=== PATIENT | male | born 1995 | race Caucasian/White ===

== ENCOUNTER 2017-02-15 17:13 | Emergency (ER) | payer OTHER ==
[2017-02-15 17:17] VITALS: BP 121/70; PULSE 66; TEMP 97.9; BMI 29.8
[2017-02-15] MEDS ORDERED: ACETAMINOPHEN 325 MG TABLET (FP) PO ONE (17:28)
[2017-02-15] MEDS ORDERED: ACETAMINOPHEN 325 MG TABLET (FP) ONE (17:31)
--- NOTE | 2017-02-15 17:54 | PDOC ---
History of Present Illness - General History Source: Patient Exam Limitations: No Limitations - History of Present Illness Initial Comments: 02/15/17 18:19 The patient is a 22 year old male, with no significant past medical history, who presents to the emergency department with right wrist pain for approximately 3 days. The patient reports he went snowboarding on Wednesday, but did not remember experiencing any notable trauma/injury to the right hand or wrist. After snowboarding patient reports going home and beginning to develop right wrist pain and swelling. Patient reports the pain has been worsening and is exacerbated with movement or palpation of the wrist. He reports numbness and tingling in his right hand/wrist, which he relates to the placido wrap he had in place for his wrist pain. Patient reports taking Advil at 14:00 today with mild relief of symptoms. He denies any other pain, weakness, or erythema. No other injuries, no loc, neck pain, back pain or other extremity pain. Allergies: Amoxicillin Past Surgical History: None reported Social History: Non smoker. No ETOH use. <Clemencia García - Last Filed: 02/15/17 18:18> <Dre Castillo - Last Filed: 02/15/17 18:31> - General Chief Complaint: Pain, Acute Stated Complaint: left wrist pain Time Seen by Provider: 02/15/17 17:16 Past History <Clemencia García - Last Filed: 02/15/17 18:18> - Past Medical History Anemia: No Asthma: No Cancer: No Cardiac Disorders: No CVA: No COPD: No CHF: No DVT: No Dementia: No Diabetes: No GI Disorders: No Disorders: No HTN: No Hypercholesterolemia: No Liver Disease: No Seizures: No Thyroid Disease: No - Surgical History Abdominal Surgery: No Appendectomy: No Cardiac Surgery: No Cholecystectomy: No Lung Surgery: No Neurologic Surgery: No Orthopedic Surgery: Yes (RECONSTRUCTION OF RIGHT FOOT-2013) - Immunization History Immunization Up to Date: Yes - Suicide/Smoking/Psychosocial Hx Smoking History: Former smoker Have you smoked in the past 12 months: Yes Number of Cigarettes Smoked Daily: 10 If you are a former smoker, when did you quit?: 08/09/2015 Information on smoking cessation initiated: No 'Breaking Loose' booklet given: 07/12/15 Hx Alcohol Use: No Drug/Substance Use Hx: No Substance Use Type: None Hx Substance Use Treatment: No <Dre Castillo - Last Filed: 02/15/17 18:31> - Past Medical History Allergies/Adverse Reactions: Allergies Allergy/AdvReac Type Severity Reaction Status Date / Time amoxicillin Allergy Intermediate Rash Verified 02/15/17 17:14 Home Medications: Ambulatory Orders NK [No Known Home Medication] 10/03/15 Review of Systems - Review of Systems Able to Perform ROS?: Yes Comments:: 02/15/17 18:19 CONSTITUTIONAL: No reported: Fever, Chills, Diaphoresis, Generalized Weakness, Malaise, Loss of Appetite MUSCULOSKELETAL: Present: Right wrist swelling, pain No reported: Myalgia, Back pain, Neck Pain SKIN: No reported: Rash, Itching, Pallor <García,Giomilsy - Last Filed: 02/15/17 18:18> *Physical Exam - Vital Signs Last Vital Signs Temp Pulse Resp BP Pulse Ox 97.9 F 66 15 121/70 100 02/15/17 17:13 02/15/17 17:13 02/15/17 17:13 02/15/17 17:13 02/15/17 17:13 - Physical Exam Comments: 02/15/17 18:19 GENERAL: The patient is awake, alert, and fully oriented, Nontoxic - in no acute distress. HEAD: Normocephalic, atraumatic. EXTREMITIES: Mild tenderness to the radial aspect of the L wrist, normal range of motion. Focal bony tenderness. No right hand or L snuffbox tenderness. mild pain with resisted pronation. Mild edema. SKIN: Warm, Dry, normal turgor <García,Giomilsy - Last Filed: 02/15/17 18:18> - Vital Signs Last Vital Signs Temp Pulse Resp BP Pulse Ox 97.9 F 66 15 121/70 100 02/15/17 17:13 02/15/17 17:13 02/15/17 17:13 02/15/17 17:13 02/15/17 17:13 <Dre Castillo - Last Filed: 02/15/17 18:31> Procedures - Splinting Splint Location: Left: Wrist (thumb spica) Pre-Proc Neuro Vasc Exam: normal Hand-Made Type: orthoglass Splint Type: Yes: Thumb Spica Post-Proc Neuro Vasc Exam: normal Placido Bandage: 3", 4" Sling: Yes <Dre Castillo - Last Filed: 02/15/17 18:31> ED Treatment Course - RADIOLOGY Radiology Studies Ordered: 02/15/17 18:13 EXAM: Left Wrist XR INTERPRETED BY: REVIEWED BY: Dr. Castillo IMPRESSION: Equivocal nondisplaced navicular fracture as discussed above. MRI evaluation is suggested, nonemergent unless otherwise clinically indicated. - Medications Given in the ED: ED Medications Discontinued Medications Generic Name Dose Route Start Last Admin Trade Name Freq PRN Reason Stop Dose Admin Acetaminophen 650 mg 02/15/17 17:28 02/15/17 17:33 Tylenol - PO 02/15/17 17:29 650 mg ONCE ONE Administration <Clemencia García - Last Filed: 02/15/17 18:18> Medical Decision Making - Medical Decision Making 02/15/17 18:15 First call placed to Dr. Mcpherson at 18:14. Awaiting call back. <Clemencia García - Last Filed: 02/15/17 18:18> - Medical Decision Making 02/15/17 17:29 22y M no pmhx presents with L wrist pain sp falling on wednesday while snowboarding - pt does not remember any acute injuries, but noted his wrist was sore wednesday evening. pt notes some tingling in his hand that may be secodary to the placido wrap he has on. no other pain elwehsere. took motrin with mild improvement. 02/15/17 17:54 xray suggestive of scaphoid fracture will place pt in a thumb spica splint and have him fu with orthopedics for further evaluation tomorrow. return precautions were discussed I discussed the physical exam findings, ancillary test results and final diagnoses with the patient. I answered all of the patient's questions. The patient was satisfied with the care received and felt comfortable with the discharge plan and treatment plan. The patient will call their primary care physician within 24 hours to arrange follow-up and will return to the Emergency Department with any new, persistent or worsening symptoms. <Dre Castillo - Last Filed: 02/15/17 18:31> *DC/Admit/Observation/Transfer - Attestations Scribe Attestion: 02/15/17 18:13 Documentation prepared by Clemencia García, acting as dental assistant medical assistant for Dre Castillo MD. <Clemencia García - Last Filed: 02/15/17 18:18> - Discharge Dispostion Admit: No <Dre Castillo - Last Filed: 02/15/17 18:31> Diagnosis at time of Disposition: Scaphoid fracture of wrist Qualifiers: Encounter type: initial encounter Scaphoid bone location: proximal third Fracture type: closed Fracture alignment: nondisplaced Laterality: left Qualified Code(s): S62.035A - Nondisplaced fracture of proximal third of navicular [scaphoid] bone of left wrist, initial encounter for closed fracture - Discharge Dispostion Disposition: HOME Condition at time of disposition: Stable - Referrals Referrals: Philippe Mcpherson MD [Staff Physician] - - Patient Instructions Printed Discharge Instructions: Wrist Fracture Additional Instructions: Please follow up with Dr. Mcpherson tomorrow for reevaluation (call office at 8am) Keep your arm elevated to minimize swelling. Keep the sling on and keep the splint dry (use a bag when you are showering). Take motrin or tylenol as needed for pain. Print Language: FINNISH - Post Discharge Activity Forms/Work/School Notes: Back to Work
== END 2017-02-15 18:34 | disposition home or self-care (01) ==
LOC: FER 17:13
PROC: 2W3CX1Z Immobilization of Right Lower Arm using Splint (ICD-10-PCS; principal; 2017-02-15)
DX: S62.035A Nondisplaced fracture of proximal third of navicular [scaphoid] bone of left wrist, initial encounter for closed fracture (principal); Y93.23 Activity, snow (alpine) (downhill) skiing, snowboarding, sledding, tobogganing and snow tubing; W18.39XA Other fall on same level, initial encounter; Y92.89 Other specified places as the place of occurrence of the external cause
CPT/HCPCS: 73110-TC-LT; 99283-25

== ENCOUNTER 2019-05-05 06:32 | Day surgery (SDC) | payer BC, OTHER ==
[2019-05-04 11:36] VITALS: BMI 30.7
[2019-05-05] MEDS ORDERED: DEXAMETHASONE SOD PHOSPHATE/PF 10 MG/ML SDV ONE (07:39)
[2019-05-05] MEDS ORDERED: MIDAZOLAM HCL 2 MG/2 ML SINGLE DOSE VIAL ONE ×2 (07:39→09:03)
[2019-05-05] MEDS ORDERED: ROPIVACAINE HCL 0.5% 30ML VIAL ONE (07:40)
[2019-05-05] MEDS ORDERED: KETOROLAC TROMETHAMINE 30 MG/1 ML VIAL ONE (09:06)
[2019-05-05] MEDS ORDERED: DEXAMETHASONE SOD PHOSPHATE 4 MG/1 ML VIAL ONE (09:06)
[2019-05-05] MEDS ORDERED: ONDANSETRON 4 MG/2 ML VIAL ONE (09:06)
[2019-05-05] MEDS ORDERED: PROPOFOL 20 ML ONE ×3 (09:07→09:46)
[2019-05-05] MEDS ORDERED: SUCCINYLCHOLINE CHLORIDE 200 MG/10 ML SYRINGE ONE (09:07)
[2019-05-05] MEDS ORDERED: LIDOCAINE HCL/PF 2% SDV 5ML VIAL ONE (09:08)
[2019-05-05] MEDS ORDERED: ONDANSETRON 4 MG/2 ML VIAL IVPUSH PRN (09:17)
[2019-05-05] MEDS ORDERED: oxyCODONE HCL 5 MG TABLET PO PRN ×2 (09:17)
[2019-05-05] MEDS ORDERED: LACTATED RINGERS SOLUTION 1,000 ML IV SCH (09:30)
[2019-05-05] MEDS ORDERED: SODIUM CHLORIDE 0.9% P/F 10 ML VIAL IJ ONE ×2 (09:53→09:56)
[2019-05-05] MEDS ORDERED: ceFAZolin SODIUM 1 GM VIAL ONE (09:56)
[2019-05-05] MEDS ORDERED: ceFAZolin SODIUM 1 GM VIAL IVPB ONE (09:56)
[2019-05-05] MEDS ORDERED: ACETAMINOPHEN 1000 MG/100 ML VIAL (NON FORMULARY) IVPB ONE (10:00)
[2019-05-05] MEDS ORDERED: DESFLURANE GAS 240 ML BOTTLE IH ONE (10:01)
[2019-05-05] MEDS ORDERED: BUPIVACAINE HCL/PF 0.25% (2.5MG/ML) 10 ML VIAL IJ ONE (10:45)
[2019-05-05] MEDS ORDERED: BUPIVACAINE HCL/PF 2.5 MG/ML - 30 ML VIAL IJ ONE (10:47)
[2019-05-05 13:15] VITALS: TEMP 97.9
[2019-05-05 13:19] VITALS: BP 136/87; PULSE 80
--- NOTE | 2019-05-05 22:07 | OP ---
DATE OF OPERATION: 05/05/2019 LOCATION: [facility] SURGEON: Guillermo Benz MD [employer] ARCHITECT: LAURITA Spring The PA listed above was present and assisted at surgery. Their presence was absolutely medically necessary for the completion of the procedure. They helped hold the arthroscopy, pass instruments (and implants when indicated) and the procedure could not have been completed without their assistance. PREOPERATIVE DIAGNOSIS: Left clavicle fracture. POSTOPERATIVE DIAGNOSIS: Left clavicle fracture. PROCEDURE: Open reduction and internal fixation of left clavicle fracture. FINDINGS: Short oblique fracture, mid shaft of the left clavicle. DESCRIPTION OF PROCEDURE: Informed consent was obtained. The patient was taken to the operating room, where the left upper extremity was prepped and draped in a sterile fashion up to the neck. C-arm fluoroscopy was used to confirm site. Incision was made starting 6 cm proximal to 6 mm distal around the fracture line. The trapezius fascia was incised, and the bone ends were identified. Wound was irrigated with copious amounts of irrigation. Curette was used to remove debris from the ends. Reduction clamps were placed, and the clavicle was reduced. A 6-hole left-sided clavicle plate was then spanned the fracture site. Using standard AO technique, distal and proximal locking screws were placed, providing 5 cortices distally and 4 cortices proximally around the fracture site. Wound was irrigated with copious amounts of irrigation again. The fascial layer was closed with 0 Vicryl in running fashion and then a layered closure of 2-0 Vicryl and 3-0 nylon. Sterile dressing was placed. The patient was transferred to the recovery room without complication. GUILLERMO BENZ M.D. [id number]
== END 2019-05-05 13:10 | disposition home or self-care (01) ==
LOC: FASU 06:32
PROVIDERS: ATTEND Orthopaedic Surgery
PROC: 0PSB04Z Reposition Left Clavicle with Internal Fixation Device, Open Approach (ICD-10-PCS; principal; 2019-05-05 10:10)
DX: S42.022A Displaced fracture of shaft of left clavicle, initial encounter for closed fracture (principal); X58.XXXA Exposure to other specified factors, initial encounter; Y93.9 Activity, unspecified; Y92.9 Unspecified place or not applicable
CPT/HCPCS: 73000-TC-LT-FY; 76000-TC-FY; 94760

== ENCOUNTER 2023-04-25 16:58 | Inpatient (IN) | payer OTHER ==
[2023-04-25] MEDS ORDERED: ALBUTEROL SO4 2.5/IPRATROPIUM 0.5 INH SOL 3 ML VIAL.NEB. NEB ONE (17:38)
[2023-04-25] MEDS: ALBUTEROL SO4 2.5/IPRATROPIUM 0.5 INH SOL 3 ML VIAL.NEB. NEB SCH (17:45)
[2023-04-25] MEDS ORDERED: methylPREDNISolone NA SUCC 125 MG/2 ML VIAL ONE (18:05)
[2023-04-25] MEDS ORDERED: AZITHROMYCIN 500 MG VIAL IVPB ONE (18:05)
[2023-04-25] MEDS ORDERED: ACETAMINOPHEN INJECTION 100 ML IVPB ONE (18:05)
[2023-04-25] MEDS ORDERED: cefTRIAXone SODIUM 1 GM VIAL ONE (18:05)
[2023-04-25] MEDS ORDERED: MAGNESIUM SULFATE IN WATER 2 GM/50 ML IVPB IVPB ONE (18:06)
[2023-04-25 18:22] LABS: HEMATOCRIT 45.6 % (35.4-49); HEMOGLOBIN 15.3 G/dL (11.7-16.9); MCH 28.7 pg (25.7-33.7); MCHC 33.6 g/dl (32.0-35.9); MEAN CELL VOLUME 85.4 fl (80-96); MEAN PLT VOLUME 9.3 fl (7.5-11.1); PLATELET COUNT 223.6 10^3/uL (134-434); RBC 5.34 10^6/uL (4.00-5.60); RDW 14.1 % (11.9-15.9); WHITE BLOOD COUNT 13.5 10^3/uL (4.0-10.8)
[2023-04-25 18:35] LABS: ALBUMIN 4.3 g/dl (3.4-5.0); BILIRUBIN,TOTAL 0.7 mg/dl (0.2-1); CALCIUM 9.6 mg/dl (8.5-10.1); CREATININE 0.9 mg/dl (0.6-1.3); POTASSIUM 4.5 mmol/L (3.5-5.1); TOT PROT 7.4 g/dl (6.4-8.2)
[2023-04-25] MEDS: ACETAMINOPHEN 1000 MG/100 ML BAG IVPB ONE (18:35)
[2023-04-25] MEDS: MAGNESIUM SULFATE IN WATER 2 GM/50 ML IVPB IVPB ONE (18:35)
[2023-04-25] MEDS: AZITHROMYCIN IVPB 500 MG in DEXTROSE 5%-WATER - 250 ML IVPB ONE (18:41)
[2023-04-25] MEDS: CEFTRIAXONE 1,000 MG in DEXTROSE 5%-WATER - 50 ML IVPB ONE (18:41)
[2023-04-25] MEDS: methylPREDNISolone NA SUCC 125 MG/2 ML VIAL IVPUSH ONE (18:41)
[2023-04-25] MEDS: SODIUM CHLORIDE 1,000 ML IV STA (18:43)
[2023-04-25 18:44] LABS: PLATELET ESTIMATE ADEQUATE
[2023-04-25] MEDS ORDERED: ALBUTEROL SO4 0.083% IH SOL 2.5 MG/3 ML VIAL.NEB. NEB ONE (18:53)
[2023-04-25] MEDS: ALBUTEROL SULFATE 0.021% (0.63 MG/3 ML) VIAL.NEB NEB ONE (18:56)
[2023-04-25 23:02] VITALS: BMI 31.1
[2023-04-26] MEDS ORDERED: ALBUTEROL SO4 0.083% IH SOL 2.5 MG/3 ML VIAL.NEB. NEB PRN (02:24)
[2023-04-26] MEDS: guaiFENesin 200 MG/10 ML 10 ML UNIT-DOSE CUPS PO PRN (03:09)
[2023-04-26] MEDS: methylPREDNISolone NA SUCC 40 MG/1 ML VIAL IVPUSH SCH (03:10)
[2023-04-26 08:50] LABS: CALCIUM 9.5 mg/dl (8.5-10.1); CREATININE 0.8 mg/dl (0.6-1.3); POTASSIUM 4.7 mmol/L (3.5-5.1)
[2023-04-26] MEDS: AZITHROMYCIN IVPB 500 MG/250 ML BAG IVPB SCH (09:53)
[2023-04-26 11:03] LABS: BASO % 0.2 % (0-2.0); HEMATOCRIT 41.2 % (35.4-49); HEMOGLOBIN 14.3 GM/dL (11.7-16.9); LYMPH % 12.2 % (8-40); MCHC 34.7 g/dl (32.0-35.9); MEAN CELL VOLUME 83.8 fl (80-96); MEAN PLT VOLUME 9.5 fl (7.5-11.1); MONO % 2.8 % (3.8-10.2); NEUT % 84.8 % (42.8-82.8); PLATELET COUNT 241 10^3/uL (134-434); RBC 4.92 M/mm3 (4.00-5.60); RDW 13.5 % (11.9-15.9)
[2023-04-27 10:20] LABS: BASO % 0.2 % (0-2.0); HEMATOCRIT 40.4 % (35.4-49); HEMOGLOBIN 13.7 GM/dL (11.7-16.9); LYMPH % 8.5 % (8-40); MCH 28.5 pg (25.7-33.7); MCHC 33.8 g/dl (32.0-35.9); MEAN CELL VOLUME 84.4 fl (80-96); MEAN PLT VOLUME 9.5 fl (7.5-11.1); MONO % 3.9 % (3.8-10.2); NEUT % 87.4 % (42.8-82.8); PLATELET COUNT 277 10^3/uL (134-434); RBC 4.79 M/mm3 (4.00-5.60); RDW 13.7 % (11.9-15.9); WHITE BLOOD COUNT 19.2 K/mm3 (4.0-10.0)
[2023-04-27 11:28] LABS: ALBUMIN 4.2 g/dl (3.4-5.0); BILIRUBIN,TOTAL 0.3 mg/dl (0.2-1); CALCIUM 9.4 mg/dl (8.5-10.1); CREATININE 0.8 mg/dl (0.6-1.3); POTASSIUM 4.7 mmol/L (3.5-5.1); TOT PROT 7.1 g/dl (6.4-8.2)
[2023-04-28 06:42] VITALS: RESP 20
[2023-04-28 11:24] VITALS: BP 134/82; PULSE 72; TEMP 98
== END 2023-04-28 11:47 | disposition home or self-care (01) | DRG 206 ==
LOC: FER 16:58 → FM/S 22:27 → OBSVTOIN 04-26 11:21
PROVIDERS: ADMIT Internal Medicine
DX: U07.0 Vaping-related disorder (principal); E87.1 Hypo-osmolality and hyponatremia; G89.29 Other chronic pain; F17.200 Nicotine dependence, unspecified, uncomplicated; G47.33 Obstructive sleep apnea (adult) (pediatric); J45.909 Unspecified asthma, uncomplicated; J06.9 Acute upper respiratory infection, unspecified
CPT/HCPCS: 0241U-QW; 36415; 71045-TC-FY; 71275-TC; 80048; 80053; 85025; 87040; 99285-25; G0378; J0131

== ENCOUNTER 2024-04-16 08:32 | Inpatient (IN) | payer OTHER ==
[2024-04-16 09:51] VITALS: BMI 27.6
[2024-04-16] MEDS ORDERED: NICOTINE POLACRILEX 2 MG LOZENGE BC PRN (10:03)
[2024-04-16] MEDS ORDERED: guaiFENesin 600 MG TABLET.ER (FP) PO PRN (10:03)
[2024-04-16] MEDS ORDERED: MAGNESIUM HYDROX 2400MG/30ML ORAL SUSPENSION 30 ML CUP PO PRN (10:03)
[2024-04-16] MEDS ORDERED: NALOXONE (NARCAN) HCL 4 MG/0.1 ML SPRAY NS PRN (10:03)
[2024-04-16] MEDS ORDERED: LOPERAMIDE HCL 2 MG CAPSULE PO PRN (10:03)
[2024-04-16] MEDS ORDERED: IBUPROFEN 400 MG TABLET (FP) PO PRN (10:03)
[2024-04-16] MEDS ORDERED: BENZONATATE 200 MG CAPSULE PO PRN (10:03)
[2024-04-16] MEDS ORDERED: IBUPROFEN 600 MG TABLET (FP) PO PRN (10:03)
[2024-04-16] MEDS ORDERED: BENZOCAINE/MENTHOL (CHLORASEPTIC ) LOZENGE MM PRN (10:03)
[2024-04-16] MEDS ORDERED: BISMUTH SUBSALICYLATE 524 MG/30 ML PO PRN (10:03)
[2024-04-16] MEDS ORDERED: ACETAMINOPHEN 325 MG TABLET (FP) PO PRN (10:03)
[2024-04-16] MEDS ORDERED: POLYETHYLENE GLYCOL (HEALTHYLAX) 3350 17 GM PACKET PO PRN (10:03)
[2024-04-16] MEDS ORDERED: DICYCLOMINE HCL 10 MG CAPSULE ONE (10:49)
[2024-04-16] MEDS: DICYCLOMINE HCL 10 MG CAPSULE PO PRN (10:57)
[2024-04-16] MEDS: methaDONE HCL 10 MG TABLET (FOR DETOX USE ONLY) PO ONE (10:58)
[2024-04-16] MEDS: cloNIDine HCL 0.1 MG TABLET PO PRN (10:58)
[2024-04-16] MEDS: METHOCARBAMOL 500 MG TABLET PO PRN (11:52)
[2024-04-16] MEDS: NICOTINE POLACRILEX 2 MG GUM BUC PRN (17:56)
[2024-04-16] MEDS: THIAMINE 100 MG TABLET PO SCH (22:12)
[2024-04-16] MEDS: MELATONIN 5 MG TABLETS PO SCH (22:12)
[2024-04-17] MEDS: methaDONE HCL 10 MG TABLET (FOR DETOX USE ONLY) PO ONE (09:52)
[2024-04-17] MEDS: PRENATAL VITAMINS W/ FOLIC ACID TABLET (FP) PO SCH (09:54)
[2024-04-17] MEDS: methaDONE HCL 10 MG TABLET PO ONE (13:00)
[2024-04-17] MEDS: NICOTINE 14 MG/24 HOURS TOPICAL PATCH TD SCH (13:03)
[2024-04-17] MEDS: cloNIDine HCL 0.1 MG TABLET PO SCH (13:03)
[2024-04-17] MEDS ORDERED: methaDONE HCL 10 MG TABLET PO PRN (14:02)
[2024-04-17] MEDS: ONDANSETRON *ODT* 4 MG TABLET SL PRN (17:38)
[2024-04-17] MEDS: TRIMETHOBENZAMIDE HCL 200MG/2ML INJ IM ONE (21:44)
[2024-04-17] MEDS: SUVOREXANT 10 MG TABLET PO PRN (22:21)
[2024-04-18] MEDS: methaDONE 40 MG, methaDONE 10 MG PO ONE (09:37)
[2024-04-18] MEDS ORDERED: P-EPHED 60MG/TRIPROLIDI 2.5MG TABLET PO PRN (09:59)
[2024-04-18] MEDS ORDERED: diazePAM 5 MG TABLET PO PRN (10:01)
[2024-04-18] MEDS: MAG HYDROX/AL HYDROX/SIMETH 30 ML UNIT-DOSE CUP PO PRN (12:10)
[2024-04-18] MEDS: NICOTINE POLACRILEX 2 MG GUM BUC PRN (14:46)
[2024-04-18] MEDS ORDERED: SUVOREXANT 10 MG TABLET PO PRN (22:00)
[2024-04-19] MEDS ORDERED: cloNIDine HCL 0.1 MG TABLET PO PRN
[2024-04-19] MEDS ORDERED: methaDONE HCL 10 MG TABLET PO ONE (08:17)
[2024-04-19] MEDS: methaDONE 40 MG, methaDONE 20 MG PO ONE (08:44)
[2024-04-19] MEDS: methaDONE HCL 10 MG TABLET PO ONE (08:54)
[2024-04-19 09:09] VITALS: BP 155/104; PULSE 71; RESP 16; TEMP 98.3
[2024-04-19] MEDS ORDERED: methaDONE 40 MG, methaDONE 20 MG PO ONE (10:00)
[2024-04-19] MEDS ORDERED: methaDONE HCL 10 MG TABLET (FOR DETOX USE ONLY) PO ONE (10:00)
[2024-04-20] MEDS ORDERED: methaDONE 40 MG, methaDONE 30 MG PO ONE (10:00)
[2024-04-21] MEDS ORDERED: methaDONE HCL 40 MG DISPERSABLE TABLET PO ONE (10:00)
[2024-04-21] MEDS ORDERED: methaDONE HCL 10 MG TABLET (FOR DETOX USE ONLY) PO ONE (10:00)
[2024-04-22] MEDS ORDERED: methaDONE 80 MG, methaDONE 10 MG PO ONE (10:00)
== END 2024-04-19 09:44 | disposition home or self-care (01) | DRG 773 ==
LOC: YASAS 08:32 → Y6N 10:17
PROVIDERS: ADMIT Allergy & Immunology; ATTEND Allergy & Immunology
PROC: HZ2ZZZZ Detoxification Services for Substance Abuse Treatment (ICD-10-PCS; principal; 2024-04-16)
DX: F11.23 Opioid dependence with withdrawal (principal); F12.20 Cannabis dependence, uncomplicated; U07.0 Vaping-related disorder; F19.282 Other psychoactive substance dependence with psychoactive substance-induced sleep disorder; F19.280 Other psychoactive substance dependence with psychoactive substance-induced anxiety disorder; G47.33 Obstructive sleep apnea (adult) (pediatric); Z88.8 Allergy status to other drugs, medicaments and biological substances
CPT/HCPCS: 80305; 80307; 93005; 93010; Q0162

== ENCOUNTER 2024-12-30 00:49 | Inpatient (IN) | payer OTHER ==
[2024-12-30] MEDS: ALBUTEROL SO4 2.5/IPRATROPIUM 0.5 INH SOL 3 ML VIAL.NEB. NEB ONE (00:58)
[2024-12-30] MEDS: SODIUM CHLORIDE 0.9% 500 ML INFUS.BAG IV ONE (00:58)
[2024-12-30] MEDS ORDERED: DEXAMETHASONE SOD PHOSPHATE 10 MG/1 ML VIAL ONE (00:58)
[2024-12-30] MEDS ORDERED: MAGNESIUM SULFATE IN WATER 2 GM/50 ML IVPB IVPB ONE (00:58)
[2024-12-30] MEDS ORDERED: RACEPINEPHRINE IH SOL 2.25% 11.25 MG/0.5 ML VIAL NEB ONE (00:58)
[2024-12-30] MEDS: RACEPINEPHRINE IH SOL 2.25% 11.25 MG/0.5 ML VIAL IH ONE (01:06)
[2024-12-30] MEDS: DEXAMETHASONE SOD PHOSPHATE 10 MG/1 ML VIAL IVPUSH ONE (01:06)
[2024-12-30] MEDS: MAGNESIUM SULF 50% (8.12 MEQ/2 ML-1 GM VIAL) IVPB ONE (01:06)
[2024-12-30 01:37] LABS: ABSOLUTE IMMATURE GRANULOCYTES 0.05 x10^3/uL (0.0-0.031); BASOPHILS # 0.09 x10^3/uL (0.01-0.08); EOSINOPHIL % 8.4 % (0.8-7.0); EOSINOPHILS # 1.26 x10^3/uL (0.04-0.54); MCHC 32.4 g/dl (32.3-36.5); MEAN CELL VOLUME 89.6 fl (79.0-92.2); MEAN PLT VOLUME 10.8 fl (9.4-12.4); MONOCYTE # 1.35 x10^3/uL (0.30-0.82); MONOCYTE % 9.0 % (5.3-12.2); RDW 12.3 % (11.9-15.3)
[2024-12-30 01:42] LABS: BG HCT 49.0 % (35.4-49); VENOUS BASE EXCESS -0.8 mmol/L (-2-2); VENOUS O2 SATURATION 61.3 % (70-80); VENOUS PCO2 54.5 mmHg (38-52); VENOUS PH 7.307 (7.310-7.410)
[2024-12-30 01:50] LABS: GLUCOSE,RANDOM 122.0 mg/dL (74-106)
[2024-12-30 01:51] LABS: TOT PROT 7.7 g/dl (6.4-8.2)
[2024-12-30 01:52] LABS: CO2 27.0 mmol/L (21-32)
[2024-12-30 01:53] LABS: ALK PHOS 101.0 U/L (40-150)
[2024-12-30 01:56] LABS: CREATININE 0.96 mg/dL (0.55-1.3); SGOT/AST 35.0 U/L (5-34); SGPT/ALT 36.0 U/L (0-55)
[2024-12-30 04:12] VITALS: BMI 32.4
[2024-12-30] MEDS: ENOXAPARIN NA (PORCINE) 40 MG/0.4 ML DISP.SYRIN SQ SCH ×2 (07:27→09:11)
[2024-12-30] MEDS ORDERED: ALBUTEROL SO4 2.5/IPRATROPIUM 0.5 INH SOL 3 ML VIAL.NEB. NEB SCH (08:00)
[2024-12-30 08:33] LABS: ABSOLUTE IMMATURE GRANULOCYTES 0.03 x10^3/uL (0.0-0.031); BASOPHILS # 0.03 x10^3/uL (0.01-0.08); EOSINOPHIL % 0.4 % (0.8-7.0); EOSINOPHILS # 0.04 x10^3/uL (0.04-0.54); MCHC 32.4 g/dl (32.3-36.5); MEAN CELL VOLUME 89.1 fl (79.0-92.2); MEAN PLT VOLUME 11.0 fl (9.4-12.4); MONOCYTE # 0.15 x10^3/uL (0.30-0.82); MONOCYTE % 1.3 % (5.3-12.2); RDW 12.2 % (11.9-15.3)
[2024-12-30] MEDS ORDERED: methylPREDNISolone NA SUCC 40 MG/1 ML VIAL IVPUSH SCH (09:00)
[2024-12-30] MEDS: methylPREDNISolone NA SUCC 40 MG/1 ML VIAL IVPUSH SCH (09:10)
[2024-12-30] MEDS: BUDESONIDE 0.5 MG/2 ML INH SUSP VIAL NEB SCH (09:10)
[2024-12-30] MEDS: PANTOPRAZOLE SODIUM 40 MG VIAL IVPUSH SCH (09:10)
[2024-12-30] MEDS: ALBUTEROL SO4 2.5/IPRATROPIUM 0.5 INH SOL 3 ML VIAL.NEB. NEB SCH (09:10)
[2024-12-30] MEDS: guaiFENesin/D-METHORPHAN TAB.ER.12H PO SCH (09:10)
[2024-12-30 09:11] LABS: CO2 25.0 mmol/L (21-32); CREATININE 0.9 mg/dl (0.6-1.3); GLUCOSE,RANDOM 188.0 mg/dl (74-106)
[2024-12-30] MEDS: NICOTINE 14 MG/24 HOURS TOPICAL PATCH TD SCH (09:11)
[2024-12-30] MEDS: FLUTICASONE PROP 0.05% 16 GM NASAL SPRAY NS SCH (10:34)
[2024-12-30] MEDS: LORATADINE 10 MG TABLET PO SCH (10:34)
[2024-12-30] MEDS: AZITHROMYCIN 500 MG TABLET PO SCH (10:34)
[2024-12-30 12:08] LABS: COCAINE, UR NEGATIVE (NEGATIVE)
[2024-12-30 12:09] LABS: METHADONE, UR POSITIVE (NEGATIVE); OPIATES, URI POSITIVE (NEGATIVE); PHENCYCLIDINE,URINE NEGATIVE (NEGATIVE); URINE AMPHETAMINES NEGATIVE (NEGATIVE); URINE BARBITURATES NEGATIVE (NEGATIVE); URINE BENZODIAZEPINES POSITIVE (NEGATIVE)
[2024-12-31 08:32] LABS: ABSOLUTE IMMATURE GRANULOCYTES 0.08 x10^3/uL (0.0-0.031); BASOPHILS # 0.02 x10^3/uL (0.01-0.08); EOSINOPHIL % 0.1 % (0.8-7.0); EOSINOPHILS # 0.02 x10^3/uL (0.04-0.54); MCHC 32.0 g/dl (32.3-36.5); MEAN CELL VOLUME 89.3 fl (79.0-92.2); MEAN PLT VOLUME 10.9 fl (9.4-12.4); MONOCYTE # 1.31 x10^3/uL (0.30-0.82); MONOCYTE % 6.2 % (5.3-12.2); RDW 12.4 % (11.9-15.3)
[2024-12-31 09:07] LABS: CO2 28.0 mmol/L (21-32); CREATININE 0.8 mg/dl (0.6-1.3); GLUCOSE,RANDOM 143.0 mg/dl (74-106)
[2024-12-31] MEDS ORDERED: predniSONE 40 MG, predniSONE 10 MG PO SCH (10:00)
[2024-12-31] MEDS: AZITHROMYCIN 250 MG TABLET PO SCH (10:09)
[2024-12-31] MEDS: predniSONE 20 MG TABLET (UD) PO SCH (10:12)
[2024-12-31 11:38] VITALS: RESP 18; TEMP 98
[2024-12-31 14:56] VITALS: BP 138/94; PULSE 60
== END 2024-12-31 15:20 | disposition home or self-care (01) | DRG 203 ==
LOC: FER 00:49 → FM/S 02:49
PROVIDERS: ADMIT Hospitalist; ATTEND Internal Medicine
DX: J45.901 Unspecified asthma with (acute) exacerbation (principal); F17.200 Nicotine dependence, unspecified, uncomplicated; F12.20 Cannabis dependence, uncomplicated; U07.0 Vaping-related disorder; G47.33 Obstructive sleep apnea (adult) (pediatric)
CPT/HCPCS: 36415; 71045-TC-FY; 80048; 80053; 80307; 81003; 82803; 83735; 83880; 84100; 84484; 85025; 87040; 87637-QW; 93005; 94640; 99285-25; J1100